=== PATIENT | female | born 1990 | race Caucasian/White ===

== ENCOUNTER 2017-10-17 09:55 | Emergency (ER) | payer MEDICAID ==
[~2017-10-17] VITALS: Ht 160 cm; Wt 67.6 kg
[2017-10-17 10:20] VITALS: Ht 160 cm; Wt 67.6 kg
[2017-10-17 15:20] LABS: BASOPHIL % 0.4 % (0-2); PLATELET COUNT 329 x10^3mcL (130-400); RED CELL DISTRIBUTION WIDTH 13.1 % (11.5-14.5)
[2017-10-17 15:21] LABS: CARBON DIOXIDE 27.4 mmol/L (21-32); CHLORIDE SERUM 104 mmol/L (98-107); CREATININE SERUM 0.6 mg/dL (0.6-1.0); GFR1 > 60 mL/min; GLUCOSE SERUM 89 mg/dL (74-106); POTASSIUM SERUM 3.6 mmol/L (3.5-5.1); SODIUM SERUM 140 mmol/L (136-145)
[2017-10-17 15:25] LABS: ALBUMIN 3.5 g/dL (3.4-5.0); ALKALINE PHOSPHATASE 75 U/L (46-116); ALT/SGPT 20 U/L (14-59); AMYLASE 45 U/L (25-115); AST/SGOT 12 U/L (15-37); BILIRUBIN TOTAL 0.5 mg/dL (0.20-1.00); LIPASE 85 IU/L (73-393); TOTAL PROTEIN, SERUM 7.3 g/dL (6.4-8.2)
[2017-10-17 16:45] VITALS: BP 122/65
== END 2017-10-17 16:45 | disposition home or self-care (01) ==
LOC: ED 09:55
PROVIDERS: Specialist
DX: R10.13 Epigastric pain (principal)
CPT/HCPCS: J0780; J1885

== ENCOUNTER 2017-11-08 17:00 | Emergency (ER) | payer MEDICAID ==
[2017-11-08 17:10] VITALS: BP 115/75
[2017-11-08 18:09] LABS: BASOPHIL % 0.5 % (0-2); PLATELET COUNT 301 x10^3mcL (130-400); RED CELL DISTRIBUTION WIDTH 13.4 % (11.5-14.5)
[2017-11-08 18:21] LABS: CARBON DIOXIDE 29.7 mmol/L (21-32); CHLORIDE SERUM 103 mmol/L (98-107); CREATININE SERUM 0.6 mg/dL (0.6-1.0); GFR1 > 60 mL/min; GLUCOSE SERUM 100 mg/dL (74-106); POTASSIUM SERUM 3.6 mmol/L (3.5-5.1); SODIUM SERUM 140 mmol/L (136-145)
== END 2017-11-08 18:44 | disposition home or self-care (01) ==
LOC: ED 17:00
PROVIDERS: Emergency Medicine
DX: G57.83 Other specified mononeuropathies of bilateral lower limbs (principal); G62.89 Other specified polyneuropathies
CPT/HCPCS: 36415; J1885

== ENCOUNTER 2018-08-10 22:01 | Emergency (ER) | payer MEDICAID ==
[~2018-08-10] VITALS: Ht 152.4 cm; Wt 70.1 kg
[2018-08-10 22:20] VITALS: Ht 152.4 cm; Wt 70.1 kg
[2018-08-10 23:37] VITALS: BP 102/54
== END 2018-08-10 23:37 | disposition home or self-care (01) ==
LOC: ED 22:01
DX: K29.70 Gastritis, unspecified, without bleeding (principal); S00.83XA Contusion of other part of head, initial encounter; V49.49XA Driver injured in collision with other motor vehicles in traffic accident, initial encounter; Y93.I9 Activity, other involving external motion; Y92.413 State road as the place of occurrence of the external cause; Y99.8 Other external cause status

== ENCOUNTER 2018-10-11 16:28 | Emergency (ER) | payer MEDICAID ==
[~2018-10-11] VITALS: Ht 152.4 cm; Wt 69.9 kg
[2018-10-11 16:30] VITALS: BP 107/63; Ht 152.4 cm; Wt 69.9 kg
[2018-10-11 17:44] LABS: BASOPHIL % 0.3 % (0-2); PLATELET COUNT 274 x10^3mcL (130-400); RED CELL DISTRIBUTION WIDTH 13.5 % (11.5-14.5)
== END 2018-10-11 19:03 | disposition home or self-care (01) ==
LOC: ED 16:28
PROVIDERS: Emergency Medicine
DX: J20.9 Acute bronchitis, unspecified (principal)
CPT/HCPCS: 36415

== ENCOUNTER 2019-02-06 13:03 | Emergency (ER) | payer MEDICAID ==
[~2019-02-06] VITALS: Ht 152.4 cm; Wt 67.6 kg
[2019-02-06 17:06] VITALS: BP 124/68
== END 2019-02-06 16:35 | disposition home or self-care (01) ==
LOC: ED 13:03
DX: S16.1XXA Strain of muscle, fascia and tendon at neck level, initial encounter (principal); R51 Headache; X58.XXXA Exposure to other specified factors, initial encounter; Y93.89 Activity, other specified; Y92.89 Other specified places as the place of occurrence of the external cause; Y99.9 Unspecified external cause status

== ENCOUNTER 2019-11-01 20:11 | Emergency (ER) | payer MEDICAID ==
[~2019-11-01] VITALS: Ht 152.4 cm; Wt 69.9 kg
[2019-11-01 20:14] VITALS: Ht 152.4 cm; Wt 69.9 kg
[2019-11-01 21:03] LABS: BASOPHIL % 0.7 % (0-2); PLATELET COUNT 362 x10^3mcL (130-400)
[2019-11-01 21:10] LABS: CALCIUM 8.8 mg/dL (8.5-10.1); CHLORIDE SERUM 103 mmol/L (98-107); CREATININE SERUM 0.5 mg/dL (0.6-1.0); GFR1 > 60 mL/min; GLUCOSE SERUM 95 mg/dL (74-106); POTASSIUM SERUM 3.4 mmol/L (3.5-5.1); SODIUM SERUM 142 mmol/L (136-145)
[2019-11-01 23:26] VITALS: BP 99/49
== END 2019-11-01 23:26 | disposition home or self-care (01) ==
LOC: ED 20:11
PROVIDERS: Emergency Medicine
DX: R07.89 Other chest pain (principal); M79.10 Myalgia, unspecified site
CPT/HCPCS: 36415; Q0092